=== PATIENT | female | born 1960 | race Caucasian/White ===

== ENCOUNTER 2019-10-03 07:12 | Inpatient (IN) ==
[2019-10-03] MEDS ORDERED: NS 1,000 ML IV PRN (07:32)
[2019-10-03] MEDS ORDERED: APRESOLINE IV ONE ×2 (07:39→09:41)
[2019-10-03 08:11] LABS: INR 0.92; PROTIME 12.5 Seconds (11.0-16.0)
--- NOTE | 2019-10-03 08:11 | Diag Imaging Result Doc PS360 ---
EXAM: CHEST-PORTABLE INDICATION: stroke like symptoms TECHNIQUE: One view COMPARISON: None. FINDINGS: The lungs are grossly clear. There is no discrete pleural fluid collection or pneumothorax. The cardiomediastinal silhouette and central vasculature are grossly unremarkable. IMPRESSION: No evidence of acute pathology by plain radiograph. Electronically signed by Yvan Conley 10/03/2019 8:08 AM
[2019-10-03 08:12] LABS: PTT 36.4 Seconds (22.3-41.8)
[2019-10-03 08:14] LABS: BASO# 0.06 X1000 (0.0-0.2); BASO% 0.5 % (0.0-0.8); EOS# 0.28 X1000 (0.0-0.7); EOS% 2.4 % (0.0-10.0); HEMATOCRIT 49.3 % (37.0-47.0); HEMOGLOBIN 16.3 g/dL (12.0-16.0); IMM GRAN# 0.03 X1000 (0.0-0.04); IMM GRAN% 0.3 % (0.0-0.5); LYMPH# 4.41 X1000 (1.2-3.4); LYMPH% 37.4 % (20.5-51.1); MCH 30.5 PG (27-31); MCHC 33.1 g/dL (33-37); MCV 92.3 FL (81-99); MONO# 0.55 X1000 (0.11-0.59); MONO% 4.7 % (1.7-9.3); MPV 10.4 FL (7.4-10.4); NEUT# 6.47 X1000 (1.4-6.5); NEUT% 54.7 % (42.2-75.2); PLT 289 X1000 (130-400); RBC 5.34 XMIL (4.2-5.4); RDW 13.6 % (11.5-14.5)
--- NOTE | 2019-10-03 08:28 | EKG Report ---
Test Performed on : 10/03/2019 08:09:22 AM Test Reason : Stroke like symptoms Blood Pressure : / mmHG Vent. Rate : 056 BPM Atrial Rate : 056 BPM P-R Int : 176 ms QRS Dur : 086 ms QT Int : 442 ms P-R-T Axes : 052 -35 016 degrees QTc Int : 426 ms Sinus bradycardia. Left axis deviation Abnormal ECG No previous ECGs available Unconfirmed Result
--- NOTE | 2019-10-03 08:35 | Diag Imaging Result Doc PS360 ---
EXAM: CT HEAD W/O CONTRAST 10/03/2019 HISTORY: stroke like symptoms TECHNIQUE: This exam was performed using automated exposure control, adjustment of mA or kV according to patient size, and/or use of iterative reconstruction technique. COMMENT: There are lacunae present in the right basal ganglia. There is no evidence of mass effect, bleed, or abnormal extra-axial fluid collection. There is a mucous retention cyst in the right maxillary sinus and some mucosal thickening in the left maxillary sinus. The calvarium is intact. IMPRESSION: No evidence of acute intracranial disease. In view of the chronic lacunar lucencies in the right basal ganglia, further evaluation with MRI may be desirable. Electronically signed by Homero Gil 10/03/2019 8:33 AM
[2019-10-03] MEDS ORDERED: ASPIRIN PO ONE (09:07)
[2019-10-03 09:08] LABS: AGAP 19; ALB/GLOB RATIO 1.5; ALBUMIN 4.5 g/dL (3.5-5.0); ALKALINE PHOSPHATASE 131 U/L (32-104); BUN 15 mg/dL (8-22); CHLORIDE 103 mmol/L (98-107); COSMO 282; CREATININE 0.8 mg/dL (0.5-0.9); ESTIMATED GFR > 60; GLUCOSE 98 mg/dL (70-104); GOT 17 U/L (10-30); GPT 12 U/L (10-36); POTASSIUM 4.1 mmol/L (3.5-5.1); SODIUM 141 mmol/L (136-145); TCO2 19 mmol/L (25-35); TOTAL BILIRUBIN 0.25 mg/dL (0.20-1.00); TOTAL PROTEIN 7.5 g/dL (6.3-8.3)
--- NOTE | 2019-10-03 09:25 | PROVIDER DOCUMENTATION ---
HPI-Neurological Disorder - General Chief Complaint: Dizziness Stated Complaint: RT ARM NUMBNESS,DIZZINESS Time Seen by Provider: 10/03/19 07:24 Source: patient Allergies/Adverse Reactions: Patient Allergies Allergy/AdvReac Type Severity Reaction Status Date / Time No Known Allergies Allergy Verified 10/03/19 07:51 Home Medications: Home Medication List Medication Instructions Recorded Confirmed Last Taken Type NK [No Home Medications] 10/03/19 10/03/19 Unknown History - History of Present Illness-Neuro Nature of Presenting Problem: 59 y/o WF c/o rt sided numbness and tingling that started sometime during the night last night. Pt states that she noticed in first at 3am with she got up to use the bathroom. Pt adds that she has hx of htn and took meds last year but couldn't afford them so she just stopped taking her meds. Severity: reports: moderate Onset/Duration: reports: unsure Timing: reports: still present Context: reports: other (htn but doesnt take meds) Character of Altered Mental Status: denies: N/A, disoriented, unchanged from baseline, confused, combative, agitated, trouble concentrating, unresponsive, seizure activity, decreased responsiveness, other Any recent trauma/injury?: denies: none, minor, major, to head, to neck, other Character of Deficits: reports: new weakness, altered sensation, vision problem/glaucoma (pt notes mildly blurred vision) New weakness or altered sensation location:: reports: RUE, RLE (numbness) Cognitive Baseline: alert, oriented x3 Gait Baseline: walks without assistance Associated Symptoms: reports: decreased ability to walk or stand, numbness in legs/feet, paresthesia (to rt side) Similar Symptoms Previously?: No Recently seen or treated by another doctor?: No Review of Systems - Adult - REVIEW OF SYSTEMS - ADULT Constitutional: reports: no symptoms reported, see HPI Eyes: reports: see HPI, blurred vision (slightly) Ears, Nose, Mouth & Throat: reports: no symptoms reported, see HPI Cardiovascular: reports: no symptoms reported, see HPI Respiratory: reports: no symptoms reported, see HPI Gastrointestinal: reports: no symptoms reported, see HPI Genitourinary: reports: no symptoms reported, see HPI Musculoskeletal: reports: no symptoms reported, see HPI Integumentary: reports: no symptoms reported, see HPI Neurological: reports: see HPI, numbness, paresthesia (to rt side) Psychiatric: reports: no symptoms reported, see HPI Endocrine: reports: no symptoms reported, see HPI Hematologic/Lymphatic: reports: no symptoms reported, see HPI Allergic/Immunologic: reports: no symptoms reported, see HPI All Other Systems: Reviewed and Negative Past History - Adult - PAST MEDICAL HISTORY-ADULT Review of Records: reports: Nursing Assessment Review, Medications Reviewed, Social history reviewed & non-contributory. Major Childhood Illnesses: reports: denies history Cardiovascular: reports: denies history Respiratory: reports: denies history Gastrointestinal: reports: denies history Obstetrical/Gynecological: reports: denies history Genitourinary: reports: denies history Musculoskeletal: reports: denies history Neurological: reports: denies history Endocrine/Immune: reports: denies history Other Conditions: reports: denies history - FAMILY HISTORY Family History: reviewed, not pertinent Physical Exam- Neurological - Physical Exam-Neuro Initial Vital Signs Reviewed: Yes General Appearance: appears well, alert, no apparent distress Eye Exam: bilateral eye: normal inspection, PERRL, EOMI HENMT: normocephalic/atraumatic, moist mucous membranes Head Injury: no evidence of injury Neck: non-tender, full range of motion, supple, normal inspection Respiratory: chest non-tender, lungs clear, normal breath sounds, no pleuratic chest pain, no respiratory distress, no accessory muscle use Cardiovascular: normal peripheral pulses, regular rate, rhythm, no edema, no gallop, no JVD, no murmur Abdominal Exam: normal bowel sounds, non tender, soft, no organomegaly, no pulsatile mass Lymphatic: no adenopathy Extremity: normal range of motion, non-tender, no pedal edema, no calf tenderne ss, 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-XII nml as tested, grossly normal, motor weakness, sensory deficit Integumentary: normal color, normal turgor Psych/Mental Status: normal mood/affect, normal thought content, normal thought process, oriented x 3 - Glascow Coma Scale Best Eye Response: (4) open spontaneously Best Verbal Response: (5) oriented Best Motor Response: (6) obeys commands Progress - PLAN OF CARE/RESULTS Progress/Plan/Lab Results: Vital Signs - 8 hr 10/03/19 07:19 Temperature 98.0 F Pulse Rate 74 Respiratory Rate 19 Blood Pressure 210/97 O2 Sat by Pulse Oximetry 96 Laboratory Results - last 24 hr 10/03/19 10/03/19 10/03/19 07:28 07:44 07:44 WBC 11.80 H RBC 5.34 Hgb 16.3 H Hct 49.3 H MCV 92.3 MCH 30.5 MCHC 33.1 RDW Std Deviation 13.6 Plt Count 289 MPV 10.4 Immature Gran % (Auto) 0.3 Neut % (Auto) 54.7 Lymph % (Auto) 37.4 [place] % (Auto) 4.7 Eos % (Auto) 2.4 Baso % (Auto) 0.5 Immature Gran # (Auto) 0.03 Neut # (Auto) 6.47 Lymph # (Auto) 4.41 H [place] # (Auto) 0.55 Eos # (Auto) 0.28 Baso # (Auto) 0.06 PT INR PTT (Actin FS) Sodium 141 Potassium 4.1 Chloride 103 Carbon Dioxide 19 L Anion Gap 19 BUN 15 Creatinine 0.8 Estimated GFR/1.73 m2 > 60 BUN/Creatinine Ratio 19 Glucose 98 POC Glucose 98 Calculated Osmolality 282 Calcium 9.0 Total Bilirubin 0.25 AST 17 ALT 12 Alkaline Phosphatase 131 H Troponin T High Sens Total Protein 7.5 Albumin 4.5 Globulin 3.0 Albumin/Globulin Ratio 1.5 10/03/19 10/03/19 07:44 07:45 WBC RBC Hgb Hct MCV MCH MCHC RDW Std Deviation Plt Count MPV Immature Gran % (Auto) Neut % (Auto) Lymph % (Auto) [place] % (Auto) Eos % (Auto) Baso % (Auto) Immature Gran # (Auto) Neut # (Auto) Lymph # (Auto) [place] # (Auto) Eos # (Auto) Baso # (Auto) PT 12.5 INR 0.92 PTT (Actin FS) 36.4 Sodium Potassium Chloride Carbon Dioxide Anion Gap BUN Creatinine Estimated GFR/1.73 m2 BUN/Creatinine Ratio Glucose POC Glucose Calculated Osmolality Calcium Total Bilirubin AST ALT Alkaline Phosphatase Troponin T High Sens 6 Total Protein Albumin Globulin Albumin/Globulin Ratio Orders Category Date Time Status Cardiac Monitoring DIRECTED Care 10/03/19 07:32 Active Finger Stick Blood Sugar (ED) DIRECTED Care 10/03/19 07:32 Active Oxygen Therapy- ED Nursing DIRECTED Care 10/03/19 07:32 Active Saline Loc NOW Care 10/03/19 07:32 Active CHEST-PORTABLE [RAD] Stat Exams 10/03/19 07:[address] HEAD W/O CONTRAST [CT] Stat Exams 10/03/19 07:32 Completed CBC WITH ELECTRONIC DIFF [HEME] Stat Lab 10/03/19 07:44 Completed COMPREHENSIVE METABOLIC PANEL [CHEM] Stat Lab 10/03/19 07:44 Completed PROTIME WITH INR [COAG] Stat Lab 10/03/19 07:44 Completed PTT [COAG] Stat Lab 10/03/19 07:44 Completed TROPONIN T HIGH SENSITIVITY Stat Lab 10/03/19 07:45 Completed URINALYSIS W/POSS RFLX CULT [URINALYSIS] Stat Lab 10/03/19 07:32 Uncollected URINE DRUG SCREEN Stat Lab 10/03/19 07:32 Uncollected 0.9% Sodium Chloride Inj [Ns] 1,000 ml Med 10/03/19 07:32 Active IV 125 mls/hr Aspirin Med 10/03/19 09:07 Discontinued 325 mg PO NOW ONE Hydralazine [Apresoline] Med 10/03/19 07:39 Discontinued 10 mg IV NOW ONE EKG [EKG] Stat Ther 10/03/19 07:32 Draft Result Diagrams: 10/03/19 07:44 10/03/19 07:44 - EKG 1 Time of EKG reading by physician:: 08:09 EKG Read and Signed by:: Sarthak Stauffer EKG Interpretation (*Must complete 3 of following elements*): Abnormal Rate: 56 Rhythm: sinus [place]: normal QRS: normal [place] Interval: normal ST Wave: normal - CT/MRI 1 CT Study: Head Impression: Abnormal, See EMR Report ([facility] - [address], [address], [place] [address] [facility] - [address] [place] [address] Department of Imaging Patient: LUIGI VALERA Date: 10/03/19MR#: [id number] : 1960ADM Status: REG ERAcct#: [id number] Age/Sex: 59/FRoom/Bed: Loc: ED Ordering Physician: Sarthak Stauffer MD Family Physician: None,PCP Reason for Procedure: stroke like symptoms Signed EXAM: CT HEAD W/O CONTRAST 10/03/2019 HISTORY: stroke like symptoms TECHNIQUE: This exam was performed using automated exposure control, adjustment of mA or kV according to patient size, and/or use of iterative reconstruction technique. COMMENT: There are lacunae present in the right basal ganglia. There is no evidence of mass effect, bleed, or abnormal extra-axial fluid collection. There is a mucous retention cyst in the right maxillary sinus and some mucosal thickening in the left maxillary sinus. The calvarium is intact. IMPRESSION: No evidence of acute intracranial disease. In view of the chronic lacunar luce ncies in the right basal ganglia, further evaluation with MRI may be desirable. Electronically signed by Homero Gil 10/03/2019 8:33 AM 10/03/19 0833 Interpreting Physician: Homero Gil MD Dictated Date/Time: 10/03/19 0832 cc: Sarthak Stauffer MD; None,PCP) - CONSULTS/PCP/HOSPITALIST Notification #1 *Consult/PCP/Hospitalist*: Payton Bowman for Hospitalist Time Discussed: 09:29 Consult Disposition: Will see in ED, Admit Departure - Departure Date of Disposition Decision: 10/03/19 Time of Disposition Decision: 09:31 DIAGNOSIS: CVA (cerebral vascular accident), Uncontrolled hypertension, Nonadherence to medication, Tobacco abuse Disposition: ADMITTED INPATIENT 09 Certified Medical Emergency: Emergent Condition: Fair Referrals and Follow-Ups: None,PCP [Primary Care Provider] - - Critical Care Note This patient required my direct & personal management of CC.: No Attestation - Physician/ KAUSHIK Attestation Patient care was provided by Advanced Practice Provider:: No The physician spent face to face time with patient:: Yes Advanced Practice Provider documentation review:: Supervising physician onsite and consulted in the evaluation and care of this patient. The physician did have a face to face encounter with the patient.
[2019-10-03 09:43] LABS: URINE SOURCE CLEAN CATCH
[2019-10-03 09:55] LABS: BILIRUBIN URINE NEGATIVE (NEGATIVE); BLOOD URINE NEGATIVE (NEGATIVE); COLOR YELLOW; GLUCOSE URINE NEGATIVE (NEGATIVE); KETONE URINE NEGATIVE (NEGATIVE); LEUKOCYTES URINE NEGATIVE (NEGATIVE); NITRITE URINE POSITIVE (NEGATIVE); PROTEIN URINE TRACE mg/dL (NEGATIVE); SP GRAVITY URINE 1.009; TURBIDITY URINE CLEAR (CLEAR); UR EPITHELIAL CELLS <10 /HPF (<10); URINE BACTERIA 4+ /HPF; URINE RBC <10 /HPF (<10); URINE WBC <10 /HPF (<10); UROBILINOGEN URINE NORMAL (NORMAL)
[2019-10-03 10:01] LABS: UR AMPHETAMINES QUAL NONE DETECTED (NONE DETECT); UR BARBITUATES QUAL NONE DETECTED (NONE DETECT); UR BENZODIAZEPIN QUAL NONE DETECTED (NONE DETECT); UR CANNABINOIDS QUAL PRESUMPTIVE POSITIVE (NONE DETECT); UR COCAINE QUAL NONE DETECTED (NONE DETECT); UR METHADONE QUAL NONE DETECTED (NONE DETECT); UR OPIATES QUAL NONE DETECTED (NONE DETECT); UR OXYCODONE QUAL NONE DETECTED (NONE DETECT); UR PCP QUAL NONE DETECTED (NONE DETECT)
--- NOTE | 2019-10-03 10:51 | Diag Imaging Result Doc PS360 ---
EXAM: MRA BRAIN W/O CONTRAST HISTORY: cva TECHNIQUE: MR angiography of the [place]. MIP images obtained. COMPARISON: None. FINDINGS: Normal flow within each distal internal carotid artery. Normal filling of the anterior and middle cerebral arteries. No occlusion or stenosis. Normal flow in the basilar artery and posterior cerebral arteries. No aneurysm. No definite flow included in the right vertebral artery. Dominant left posterior communicating artery. IMPRESSION: No occlusion or stenosis within the [place]. Although no flow is demonstrated right vertebral artery, there is normal flow in the basilar artery and posterior cerebral arteries. Electronically signed by Tremayne Styles 10/03/2019 10:48 AM
--- NOTE | 2019-10-03 10:53 | Diag Imaging Result Doc PS360 ---
EXAM: MRI BRAIN W/O CONTRAST 10/03/2019 HISTORY: cva TECHNIQUE: T1 sagittal and axial, axial T2, FLAIR, DWI and coronal gradient echo. COMMENT: There are lacunae present in the basal ganglia region bilaterally. There is also a lacune present in the cast[place] radiata on the right. There is no evidence of mass effect, bleed, or abnormal extra-axial fluid collection. There is restricted diffusion in the posterior left juan luis. This demonstrates only slight increased T2-weighted signal intensity. IMPRESSION: Small pontine infarct on the left. Chronic ischemic microvascular changes. Electronically signed by Homero Gil 10/03/2019 10:51 AM
[2019-10-03] MEDS ORDERED: TYLENOL PO PRN (11:27)
[2019-10-03] MEDS ORDERED: ZOFRAN IV PRN (11:27)
[2019-10-03] MEDS ORDERED: APRESOLINE IV PRN (11:53)
[2019-10-03] MEDS: APRESOLINE IV PRN (12:50)
[2019-10-03] MEDS ORDERED: NORVASC PO ONE (14:22)
--- NOTE | 2019-10-03 15:31 | HISTORY AND PHYSICAL ---
PRIMARY CARE PROVIDER: None. CHIEF COMPLAINT: Right hand and leg numbness, dizziness. HISTORY OF PRESENT ILLNESS: Ms. Martinez is a 59-year-old female who reports a past medical history of hypertension, is not currently taking any home medication for that. She reports yesterday she started having some right hand numbness, dizziness, had a slight headache. Also complained of some right leg numbness as well. She had to brace herself while she was walking. She went to bed last night around 8 p.m. but was not really able to sleep secondary to the dizziness. She reports this morning that her hand and finger tips are now tingling as well as her right leg. Her headache is now gone. She did have 1 episode of nausea and vomiting this morning. She came to the ED to be evaluated. She was found to be extremely hypertensive with blood pressures 210/97. Head CT showed no evidence of acute intracranial disease, but in view of chronic lacunar lucencies in the right basal ganglia further evaluation with MRI may be desirable. We have ordered those. Her current blood pressures were 230s over 120s. We will give her another dose of Apresoline. We have put in for her brain MRI MRA now. If those come back negative for any stroke we will put her in the ICU on a Cardene drip. We will continue with a full neurological workup. Musculoskeletal-grullon, she does not have any focal deficits. She does still complains of the numbness and tingling in her right upper and lower extremities. There have been no complaints of slurred speech, facial drooping. She is A O x4. Follows commands. PAST MEDICAL HISTORY: Hypertension. PAST SURGICAL HISTORY: 1. Partial hysterectomy and then a complete hysterectomy. 2. 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 She reported that it was 10 pounds and 9 ounces. This was done in [place], [place]. SOCIAL HISTORY: She lives with her boyfriend. She is a pack per day smoker has been so since the age of 16. She has not had any alcohol in 5 years. She is a daily marijuana user. ALLERGIES: No known drug allergies. HOME MEDICATIONS: None. REVIEW OF SYSTEMS: Completely negative except for those mentioned in HPI. PHYSICAL EXAMINATION: VITAL SIGNS: Temperature is 98 degrees, heart rate 74, respiration 19, current blood pressure is 230/121, O2 is 97% on room air. GENERAL: Ms. Martinez is a pleasant 59-year-old female who is lying on the stretcher in no acute distress. She just finished using the bedside commode with assistance from staff. HEENT: Atraumatic, normocephalic. PERRL. NECK: Supple, trachea midline. CARDIOVASCULAR: S1, S2 appreciated. No murmurs, gallops, or rubs noted. No JVD. No lower extremity edema. RESPIRATORY: Lungs are clear bilaterally. GASTROINTESTINAL: Abdomen was soft, nontender, nondistended. Positive bowel sounds 4 quadrants. NEUROLOGIC: Cranial nerves 2-12 are intact. No musculoskeletal deficits are noted. She is extremely strong right and left, however she does complain of numbness and tingling to the right upper and lower extremities. She is A O x4. Follows all commands. Moves all extremities. DIAGNOSTIC DATA: Head CT, no evidence of acute intracranial disease. In view of the chronic lacunar lucencies in the right basal ganglia further evaluation with MRI may be desirable. EKG sinus bradycardia with a left axis deviation. No previous to compare. LABORATORY DATA: White count 11, hemoglobin and hematocrit 16 and 49, platelet count is 289,000. Sodium 141, potassium 4.1, BUN 15, creatinine 0.8, blood glucose is 98. Urinalysis is currently pending. Brain MRA/MRI is pending echo of carotids pending. ASSESSMENT AND PLAN: 1. Cerebrovascular accident rule out. Head CT showed chronic lucunar lucencies present in the right basal ganglia that are chronic and recommend further evaluation with MRI. We set her up for MRI and MRA of the brain as well as carotid Dopplers and echocardiogram. She has already been given full-dose aspirin. Continue with neuro checks. We are going to await the results of her brain MRI. If it shows no acute stroke she will be admitted to the ICU and placed on a Cardene drip. 2. Accelerated hypertension. We will give her a dose of Apresoline now. Await the MRI. If there is no acute stroke she will be initiated on a Cardene drip and placed in the ICU. 3. Further recommendation to follow physician evaluation, laboratory and diagnostic data. Dictated by LUBNA Alejandra for Gm Banegas MD Addendum: Patient seen and examined by myself. Agree with LUBNA note. It reflects my assessment and plan. Patient is being admitted to hospital for acute stroke. She has a lacunar infarct. Will allow permissive hypertension and will consult Neurology. Will also check an echocardiogram and monitor patient closely. cc: Gm Banegas MD MTDD
[2019-10-03] MEDS ORDERED: LABETALOL IV PRN (18:06)
[2019-10-03] MEDS: NORVASC PO SCH (20:49)
[2019-10-03] MEDS: LIPITOR PO SCH (20:49)
--- NOTE | 2019-10-03 22:50 | ECHO REPORT ---
ORDER DATE: 10/03/2019 MEASUREMENTS: Septal thickness 1.1, left ventricular internal diameter in diastole 4.3, posterior wall thickness 1.0, left ventricular internal diameter in systole 2.6, aortic root 3.0, left atrium 4.0. SUMMARY: 1. Fair quality study. 2. The aortic valve is trileaflet and opens normally on 2-dimensional images. The peak gradient across the aortic valve is less than 10 mmHg. Mitral, tricuspid and pulmonic valves are without evidence of structural abnormality. The aortic root is normal size. 3. Normal left ventricular dimensions demonstrated. The estimated left ventricular ejection fraction appears to be at least 70%. No regional wall motion abnormalities evident. Left atrium is borderline enlarged. The right atrium and right ventricle are normal in size, with grossly preserved right ventricular systolic function. 4. No pericardial effusion. 5. Appearance of inferior vena cava suggests normal central venous pressure. 6. Intravenous agitated saline contrast study performed reveals no evidence of [id number] intracardiac shunting. cc: Heath Chen MD
[2019-10-04] MEDS: APRESOLINE IV PRN ×2 (02:51→09:21)
--- NOTE | 2019-10-04 06:45 | GENERAL SURGERY CONSULTATION ---
DATE: 10/03/2019 REASON FOR CONSULTATION: Carotid stenosis. HISTORY OF PRESENT ILLNESS: This is a 59-year-old female who developed paresthesias in her right upper and lower extremity as well as the right face. She came to the emergency department where imaging was consistent with a left-sided small pontine infarct with chronic ischemic changes noted bilaterally. She had further workup that showed carotid stenosis bilaterally, more significant on the left 60 to 79%. She has had no other TIA or stroke symptoms in the past. No cardiac history. She is pack-a-day smoker. Her symptoms have persisted. She denies any weakness. No dysarthria. She has been quite hypertensive up to 263 systolic. MEDICAL HISTORY: Hypertension, poorly controlled. Tobacco abuse. SURGICAL HISTORY: She has had no cervical operations. I think she has had a hysterectomy, and a benign tumor removed that was apparently 10 pounds. SOCIAL HISTORY: She is here with her boyfriend. Pack-a-day smoker. Denies recent alcohol. She does smoke marijuana. REVIEW OF SYSTEMS: A 10-point review of systems was performed. Negative otherwise as mentioned in HPI. FAMILY HISTORY: Reviewed and noncontributory. PHYSICAL EXAMINATION: Vital Signs: On exam, she is afebrile. Pulse in the 60s to 70s. Blood pressure is in the low 200s, but most recently 184/82, but has been as high as 263. General: She is alert. HEENT: No scleral icterus. No cervical masses. Cardiovascular: Normal rate. Pulmonary: No increased work of breathing. Abdomen: Soft and nontender. Integument: Warm and dry. Psychiatric: Appropriate affect. Neurologic: Her cranial nerves are intact. She does have some numbness over right face, right hand and leg, but there is no apparent muscle weakness. Lymphatic: No cervical adenopathy. Peripheral Vascular: She does have some trace lower extremity edema. LABORATORY: White count 11, hematocrit 49. Her INR 0.92. Creatinine 0.8. Urinalysis is positive for nitrates, negative for leukocytes. She does have cannabinoids positive. DIAGNOSTIC: I reviewed her imaging. ASSESSMENT AND PLAN: A 59-year-old female with acute infarct on the left. She has paresthesia on the right, but no muscle weakness. She does have a stenosis of 60 to 79% on the left side as well as a more moderate stenosis on the right. I agree with her current medical management and permissive hypertension, but she has been quite hypertensive. Would recommend goal systolics in the 180 range. She is on aspirin. I do not see this in a statin Lipitor, and would continue this. She may ultimately benefit from endarterectomy on the left side for further stroke risk reduction, but would allow this to recover for the next 6 weeks or so. We will continue to follow along. cc: Betsy Rowland MD
--- NOTE | 2019-10-04 07:34 | CONSULTATION ---
DATE OF CONSULTATION: 10/03/2019 REASON FOR CONSULT: Stroke. HISTORY OF PRESENT ILLNESS: This is a 59-year-old female with history of hypertension, who is admitted with stroke. History is from the patient and family. She reports symptom onset yesterday evening, but she did not tell anyone. She had the sudden onset of dizziness, as well as right arm and leg numbness. She had some gait difficulty. She slept, and this morning her symptoms were still present, seemed a little worse, and so she decided to come to the emergency department. Her symptoms are still there currently. She is also having a bit of tingling. There has not been significant improvement per her. Head CT did not show acute findings, but did show a chronic lacune present in the right basal ganglia. MRI performed today showed a small pontine infarct on the left. Her blood pressure was above 200 when she arrived. The patient has a history of hypertension, but self-discontinued medication about 6 months ago after losing her job and being unable to afford the medication. She denies prior history of stroke or major neurologic event. PAST MEDICAL HISTORY: Includes hypertension. FAMILY HISTORY: No stroke or seizure. SOCIAL HISTORY: She is a long-term smoker. She also endorses using marijuana. No alcohol. She is currently unemployed after losing her job 6 months ago. ALLERGIES: No known drug allergies. HOME MEDICATIONS: None. REVIEW OF SYSTEMS: Balance of 12 reviewed and is otherwise negative, except that detailed in the HPI. She did apparently vomit earlier in the morning, and she had a headache, but that is improved. PHYSICAL EXAMINATION: Vital Signs: Afebrile, most systolic blood pressures have been above 200, pulse 60s to 80s. General: Ms. Martinez is sitting up in bed, awake, alert, and oriented. She is appropriate and interactive. She is a little anxious appearing. Neurologic: No language disturbance. No dysarthria. Cranial nerves were tested and intact, except report of reduced sensation to the right side of the face, including the forehead. Tone is equal in the limbs. She has a right pronator drift. Power is intact in the limbs, with the exception of the right deltoid at 4+/5, and possibly the right hip flexion, which is at 4+/5. She reports diminished sensation on the right upper and lower extremity to pinprick. She is a bit jittery. Her vwlelz-ha-qbqq is intact. She has slight difficulty performing hlzc-xj-[id number] using her right leg compared to her left leg. Additionally, rapid alternating movements were a bit slower using the right hand compared to the left hand. Reflexes 2+ and symmetric. Toes are downgoing. No clonus. I did not test her gait. DIAGNOSTICS: MRI of the brain, noncontrast, personally reviewed, showed a small pontine infarct on the left. MRA of the brain showing no occlusion or stenosis in the knik of Chen. No flow demonstrated in the right vertebral artery, but there is normal flow in the basilar artery and posterior cerebral arteries. Labs reviewed in the chart. Urine culture is pending. ASSESSMENT AND PLAN: Acute left pontine infarct with primarily sensory deficit and some relatively mild weakness as detailed above. Agree with typical stroke workup as you are doing. Agree with aspirin daily, as well as statin therapy. Given the recent nature of the stroke, agree with a moderate amount of permissive hypertension at this time. Continue neurologic checks. Physical therapy, occupational therapy. Speech Therapy evaluation for swallowing is recommended prior to oral intake. She was encouraged to stop smoking, and to take her medications as prescribed. It would be helpful to use medications which would be affordable for her as she has expressed this concern. Thank you for the consult. cc: MD KARLO Samuels
[2019-10-04] MEDS: NORVASC PO SCH ×2 (08:34→21:05)
[2019-10-04] MEDS: ASPIRIN PO SCH (08:34)
[2019-10-04 09:00] LABS: BASO# 0.06 X1000 (0.0-0.2); BASO% 0.5 % (0.0-0.8); EOS% 0.9 % (0.0-10.0); HEMATOCRIT 49.5 % (37.0-47.0); HEMOGLOBIN 16.5 g/dL (12.0-16.0); IMM GRAN# 0.04 X1000 (0.0-0.04); IMM GRAN% 0.3 % (0.0-0.5); LYMPH# 3.86 X1000 (1.2-3.4); LYMPH% 33.5 % (20.5-51.1); MCH 30.6 PG (27-31); MCHC 33.3 g/dL (33-37); MCV 91.7 FL (81-99); MONO# 0.63 X1000 (0.11-0.59); MONO% 5.5 % (1.7-9.3); MPV 10.2 FL (7.4-10.4); NEUT# 6.82 X1000 (1.4-6.5); NEUT% 59.3 % (42.2-75.2); PLT 301 X1000 (130-400); RDW 13.9 % (11.5-14.5); WBC 11.51 X1000 (4.8-10.8)
--- NOTE | 2019-10-04 09:23 | PROGRESS NOTE ---
DATE: 10/04/2019 SUBJECTIVE: Last afternoon, while this patient was in PVC, her blood pressure has been ranging between 150s and 160s so we decided to transfer this patient to the intensive care unit. She was receiving labetalol and hydralazine IV, and blood pressure has been 202, 207, sometimes 150s. No other issues noted as per nursing staff overnight. OBJECTIVE: Vital Signs: Temperature 99.0 degrees, heart rate 66, respiratory rate 19, blood pressure 202/93, O2 saturation 96% on room air. General Examination: This is a chronically ill- appearing, 59-year-old, female lying in bed, in no acute distress. Cardiovascular Examination: S1 and S2 heard. No murmurs, gallops, or rubs. Regular rate and rhythm. Respiratory Examination: Clear bilaterally to auscultation. No work of breathing. Not using accessory muscles. Abdomen: Soft, nontender to palpation. Bowel sounds present. No organomegaly. Extremities: No clubbing, cyanosis, or edema. Peripheral pulses present in both legs. Neurological Examination: The patient is alert and oriented x3. Moves 4 extremities. Muscle strength 4/4. Laboratory Data: There are no labs from today yet. ASSESSMENT AND PLAN: 1. Left small pontine infarct. The patient clinically is feeling okay. No new neurological symptoms. Blood pressure has been an issue for her and that is the reason why she has been transferred to the intensive care unit. Blood pressure has been less than 200 almost all the time. At this point, I am planning to keep her there for another 24 hours. Awaiting neurology consultation. We will continue to monitor this patient closely. 2. Accelerated hypertension. As we mentioned above, we are allowing permissive hypertension because of this new stroke. We will probably do it for the next 48-72 hours and then will start controlling blood pressure better. 3. Carotid stenosis. The patient has been evaluated by general surgery. The recommendation is to allow recovery for 6 weeks and then she will be evaluated in the office. 4. Active tobacco abuse. Patient recommended to quit smoking. 5. Marijuana abuse. The patient reported that she is going to quit using marijuana. 6. Disposition. We will continue to monitor this patient closely in the intensive care unit. Physical therapy and occupational therapy have been consulted. Neurology has been consulted as well. cc: MD KARLO Singletary
[2019-10-04 09:25] LABS: HEMOGLOBIN A1C 5.3 % (4.8-6.0)
[2019-10-04 09:34] LABS: AGAP 15; ALB/GLOB RATIO 1.1; ALBUMIN 4.2 g/dL (3.5-5.0); ALKALINE PHOSPHATASE 131 U/L (32-104); BUN 13 mg/dL (8-22); CALCIUM 9.5 mg/dL (8.8-10.2); CHLORIDE 101 mmol/L (98-107); COSMO 276; CREATININE 0.7 mg/dL (0.5-0.9); ESTIMATED GFR > 60; GLUCOSE 105 mg/dL (70-104); GOT 16 U/L (10-30); GPT 12 U/L (10-36); POTASSIUM 3.4 mmol/L (3.5-5.1); SODIUM 138 mmol/L (136-145); TCO2 22 mmol/L (25-35); TOTAL BILIRUBIN 0.46 mg/dL (0.20-1.00)
--- NOTE | 2019-10-04 14:26 | PROGRESS NOTE ---
DATE: 10/04/2019 SUBJECTIVE: Ms. Martinez presented with right-sided weakness and imaging evidence of small acute left pontine infarction. Risk factors include cigarette smoking and untreated hypertension. Lab work here shows total cholesterol of 355. Urine drug screen on admission was positive for cannabis. There is evidence of UTI. Brain MRA was unremarkable. Carotid ultrasound showed left more than right internal carotid stenosis, and she has had vascular surgery consultation. Echocardiogram showed no source of embolus. Systolic blood pressures have been 170s-200s over recent hours. She had systolic blood pressures 230s and 260s reported earlier this admission. She has longstanding hypertension and had stopped her medication prior to admission. PHYSICAL EXAMINATION: On exam now, she is awake, alert, attentive, and cheerful. Speech is not significantly dysarthric. Language function is intact on bedside testing. Memory is good. Head and neck are unremarkable. She has full visual gill. Extraocular movements are full. I can overcome the right arm grading 4/5 at the deltoid and 4+/5 at the wrist extensor. She did rapid alternating movements a little bit better with the left hand than the right. She did well with [id number]-[id number] testing bilaterally, but was a little bit dysmetric with right bawsve-iy-agowsr testing. I did not test her gait. She reports "ants crawling and stinging" sensation associated with light touch over the right hand, and she reports normal sensation over the left hand. IMPRESSION: Recent brainstem stroke with relatively minimal neurologic deficit, stable course. I do not think we need further workup urgently. She may be a candidate for carotid endarterectomy later. I would continue treating blood pressure with target range 160 to 180 systolic short- term, and then 140 systolic longer-term. I strongly encouraged her to quit smoking cigarettes. It looks like she will need to take medicine for lipids. Thanks for asking Neurology to see Ms. Martinez. cc: MD KARLO Dial III
[2019-10-04] MEDS: LIPITOR PO SCH (21:05)
[2019-10-05 05:59] LABS: BASO# 0.07 X1000 (0.0-0.2); BASO% 0.6 % (0.0-0.8); EOS% 1.8 % (0.0-10.0); HEMATOCRIT 47.2 % (37.0-47.0); HEMOGLOBIN 15.8 g/dL (12.0-16.0); IMM GRAN# 0.02 X1000 (0.0-0.04); IMM GRAN% 0.2 % (0.0-0.5); LYMPH% 42.9 % (20.5-51.1); MCH 30.7 PG (27-31); MCHC 33.5 g/dL (33-37); MCV 91.8 FL (81-99); MONO# 0.73 X1000 (0.11-0.59); MONO% 6.7 % (1.7-9.3); MPV 10.6 FL (7.4-10.4); NEUT# 5.23 X1000 (1.4-6.5); NEUT% 47.8 % (42.2-75.2); PLT 284 X1000 (130-400); RBC 5.14 XMIL (4.2-5.4); WBC 10.95 X1000 (4.8-10.8)
[2019-10-05 06:36] LABS: AGAP 16; BUN 23 mg/dL (8-22); CALCIUM 8.9 mg/dL (8.8-10.2); CHLORIDE 104 mmol/L (98-107); COSMO 287; CREATININE 0.7 mg/dL (0.5-0.9); ESTIMATED GFR > 60; GLUCOSE 97 mg/dL (70-104); POTASSIUM 3.7 mmol/L (3.5-5.1); SODIUM 142 mmol/L (136-145); TCO2 22 mmol/L (25-35)
[2019-10-05] MEDS: NORVASC PO SCH ×2 (08:36→21:18)
[2019-10-05] MEDS: ASPIRIN PO SCH (08:36)
--- NOTE | 2019-10-05 09:52 | PROGRESS NOTE ---
DATE: 10/05/2019 SUBJECTIVE: Patient reports feeling fine. Her blood pressure is much better controlled. She has not needed to receive any IV blood pressure medication during the last 12 hours. Her blood pressure has been ranging between 170 and 180s. According to neurology, the patient is still in the range of 160-180 blood pressure goal. Clinically, she feels fine. No headaches. No nausea or vomiting. OBJECTIVE: Vital Signs: Temperature 97.7 degrees, heart rate 62, respiratory rate 20, blood pressure 181/80. O2 saturation 97% on room air. General Examination: This is a 59-year-old female lying in bed, in no acute distress. Cardiovascular: S1, S2 heard. No murmurs, gallops, or rubs. Regular rate and rhythm. Respiratory: Clear bilaterally to auscultation. No work of breathing or using accessory muscles. Abdomen: Soft. Nontender to palpation. Bowel sounds present. No organomegaly. Extremities: No clubbing, cyanosis, or edema. Peripheral pulses present in both legs. Neurological: Patient alert and oriented x3. Moves 4 extremities. Muscle strength 5/5 in all 4 extremities. LABORATORY DATA: White cell count 10.95, hemoglobin 15.8, hematocrit 47.2, platelets 284,000. Normal renal function and cholesterol 355. ASSESSMENT AND PLAN: 1. Left small pontine infarct. Clinically patient is doing fine. No new neurological symptoms. Blood pressure is much better controlled. She required IV p.r.n. blood pressure medications. She is now on amlodipine 5 mg p.o. b.i.d. We will continue with the same management. I think at this point, patient is much more stable and we can send her to a regular room. Patient is working with physical therapy, occupational therapy. I have not seen will report yet but will need to continue working with her. Patient is uninsured so she needs to continue to receive physical therapy she needs to stay in the hospital. We will continue to monitor this patient closely. 2. Accelerated hypertension. As mentioned before, patient is an amlodipine 5 mg p.o. b.i.d. Also on hydralazine p.r.n. We will continue to monitor this patient. Short term goal BP is 160 to 180 systolic blood pressure according to neurology. 3. Left carotid stenosis. Surgery has been consulted and they recommended to allow recovery for 6 weeks in order to consider proceeding with that surgery. She will be evaluated in the office. 4. Active tobacco abuse. Patient recommended to quit smoking. 5. Marijuana abuse. Patient again advised to quit using marijuana. 6. Disposition. We will send this patient out of the intensive care unit today. Physical therapy and occupational therapy working with her. We will monitor this patient closely. cc: Gm Banegas MD MTDD
--- NOTE | 2019-10-05 14:10 | PROGRESS NOTE ---
DATE: 10/05/2019 SUBJECTIVE: Ms. Martinez continues with stable course neurologically. DATA: Chart shows systolic blood pressures range 140s-190s. She is tolerating that range. PLAN: We reviewed her modifiable risk factors for cerebrovascular disease. I reinforced earlier suggestions that she stop smoking cigarettes and be aggressive with management of her blood pressure and lipids. I do not have any new thoughts or new suggestions from neurology standpoint today. I will sign off and be glad to see Ms. Martinez again, if needed. Thanks for asking us to see her. cc: MD KARLO Dial III
--- NOTE | 2019-10-05 17:40 | Carotid Study ---
DATE: 10/03/2019 FACETOR: Zoraida. REQUESTING PHYSICIAN: LUBNA Alejandra INDICATIONS: CVA. FINDINGS: In the right carotid artery system there is a broad-based plaque noted in the bulb that causes elevation of velocity up to 148 that would correlate to a 40 to 59% moderate stenosis. The vertebral is antegrade. On the left, there is again noted heterogeneous plaque in the bulb and distended proximal internal carotid arteries and velocity is elevated up to 230 that would correlate to a 60 to 79% stenosis here, again with antegrade vertebral summary. Moderate degree of stenosis in the right carotid artery with more severe 60 to 79% stenosis noted in the left. Vertebrals are antegrade. cc: Betsy Rowland MD
[2019-10-05] MEDS: LIPITOR PO SCH (21:18)
[2019-10-06 07:34] LABS: BASO# 0.07 X1000 (0.0-0.2); BASO% 0.7 % (0.0-0.8); EOS# 0.24 X1000 (0.0-0.7); EOS% 2.3 % (0.0-10.0); HEMATOCRIT 48.2 % (37.0-47.0); HEMOGLOBIN 15.6 g/dL (12.0-16.0); IMM GRAN# 0.03 X1000 (0.0-0.04); IMM GRAN% 0.3 % (0.0-0.5); LYMPH# 4.62 X1000 (1.2-3.4); MCH 30.2 PG (27-31); MCHC 32.4 g/dL (33-37); MCV 93.2 FL (81-99); MONO# 0.68 X1000 (0.11-0.59); MONO% 6.6 % (1.7-9.3); MPV 10.3 FL (7.4-10.4); NEUT# 4.63 X1000 (1.4-6.5); NEUT% 45.1 % (42.2-75.2); PLT 280 X1000 (130-400); RBC 5.17 XMIL (4.2-5.4); RDW 14.1 % (11.5-14.5); WBC 10.27 X1000 (4.8-10.8)
[2019-10-06 08:04] LABS: AGAP 14; BUN 19 mg/dL (8-22); CALCIUM 9.1 mg/dL (8.8-10.2); CHLORIDE 107 mmol/L (98-107); COSMO 291; CREATININE 0.7 mg/dL (0.5-0.9); ESTIMATED GFR > 60; GLUCOSE 96 mg/dL (70-104); POTASSIUM 3.7 mmol/L (3.5-5.1); SODIUM 145 mmol/L (136-145); TCO2 24 mmol/L (25-35)
[2019-10-06] MEDS: NORVASC PO SCH ×2 (10:05→20:33)
[2019-10-06] MEDS: ASPIRIN PO SCH (10:05)
[2019-10-06] MEDS: LIPITOR PO SCH (20:33)
--- NOTE | 2019-10-06 21:32 | DISCHARGE SUMMARY ---
ADMISSION DATE: 10/03/2019 DISCHARGE DATE: 10/06/2019 DISCHARGE DIAGNOSES: 1. Stroke. 2. Cerebrovascular accident (CVA). 3. Left small pontine infarct. 4. Accelerated hypertension which is understandable in the setting of a stroke. 5. Left carotid stenosis. 6. Tobacco abuse. Briefly, this is a 59-year-old female. She was admitted on the [address]th [address] Crook with right hand leg numbness and dizziness. She was found to have a stroke. Her blood pressure was initially 210/97. She had lacunar lucencies, but nothing acute. She was placed on blood pressure control. MRI showed a small pontine infarct on the left. MRA: I do not think showed anything significant. Her carotid Dopplers, however, showed 60-79% stenosis of the left carotid artery. The right was about 40 to 59%. Other than that, the patient was stable. Neurology was consulted, recommended workup, aspirin, statin, permissive hypertension. She did well with PT and occupational therapy. In fact, today's note from PT showed she walked 228 feet. She did use a rolling walker with minimum assist, but she did require mod max assist to maintain balance, though she will need a rolling walker. We will set her up for outpatient PT. The rest of her workup was negative. Her LDL direct was 295 with a total cholesterol of 355. Her blood pressure is still maintaining 160s, 170s, which is where we would expect it and that is on antihypertensives. DISCHARGE MEDICATIONS: Aspirin 325 daily, Lipitor 40 daily, Norvasc 10 daily. DISCHARGE CONDITION: Stable. DISPOSITION: She is discharged home. She will have her boyfriend to help her out at home. She will need follow up with PCP and follow up with Neurology in 1 to 2 weeks. Return for any worsening dizziness or stroke symptoms. TIME SPENT: 35 minute discharge. cc: Chemo George MD
[2019-10-07 07:57] LABS: BASO# 0.07 X1000 (0.0-0.2); BASO% 0.7 % (0.0-0.8); EOS# 0.24 X1000 (0.0-0.7); EOS% 2.4 % (0.0-10.0); HEMOGLOBIN 15.3 g/dL (12.0-16.0); IMM GRAN# 0.03 X1000 (0.0-0.04); IMM GRAN% 0.3 % (0.0-0.5); LYMPH# 4.43 X1000 (1.2-3.4); LYMPH% 43.7 % (20.5-51.1); MCH 30.2 PG (27-31); MCHC 32.6 g/dL (33-37); MCV 92.9 FL (81-99); MONO# 0.68 X1000 (0.11-0.59); MONO% 6.7 % (1.7-9.3); MPV 10.5 FL (7.4-10.4); NEUT# 4.69 X1000 (1.4-6.5); NEUT% 46.2 % (42.2-75.2); PLT 270 X1000 (130-400); RBC 5.06 XMIL (4.2-5.4); RDW 13.7 % (11.5-14.5); WBC 10.14 X1000 (4.8-10.8)
[2019-10-07 08:14] VITALS: BP 177/65
[2019-10-07 08:29] LABS: AGAP 13; BUN 18 mg/dL (8-22); CALCIUM 8.8 mg/dL (8.8-10.2); CHLORIDE 106 mmol/L (98-107); COSMO 283; CREATININE 0.6 mg/dL (0.5-0.9); ESTIMATED GFR > 60; GLUCOSE 92 mg/dL (70-104); POTASSIUM 3.8 mmol/L (3.5-5.1); SODIUM 141 mmol/L (136-145); TCO2 22 mmol/L (25-35)
[2019-10-07] MEDS: NORVASC PO SCH (09:33)
[2019-10-07] MEDS: ASPIRIN PO SCH (09:33)
== END 2019-10-07 09:58 | disposition home or self-care (01) | DRG 65 ==
LOC: ED 07:12 → EDIPHOLD 10:03 → SUATTDRO 10:03 → ICU 13:39 → 2N 14:31 → ICU 10-04 00:44 → 3N 10-05 11:26
PROVIDERS: ATTEND Internal Medicine